=== PATIENT | female | born 1990 | race Two or more races ===

== ENCOUNTER 2018-08-07 09:58 | Emergency (ER) | payer SELFPAY ==
[~2018-08-07] VITALS: Ht 170.2 cm; Wt 57.0 kg
[2018-08-07] MEDS ORDERED: SODIUM CHLORIDE 0.9% 1,000 ML IV ONE (11:06)
[2018-08-07] MEDS ORDERED: ONDANSETRON HCL 4MG/2ML INJ IV STA (11:06)
[2018-08-07 12:32] LABS: CLARITY URINE TURBID (CLEAR); COLOR URINE ORANGE (YELLOW); KETONES URINE 1+ (NEGATIVE); LEUKOCYTE ESTERASE URINE NEGATIVE (NEGATIVE); NITRITE URINE NEGATIVE (NEGATIVE); OCCULT BLOOD URINE NEGATIVE (NEGATIVE); PROTEIN URINE TRACE (NEGATIVE); SPECIFIC GRAVITY URINE 1.029 (1.005-1.030); UROBILINOGEN URINE 0.2 E.U./dL (0.2-1.0)
[2018-08-07] MEDS ORDERED: CEFTRIAXONE SODIUM 250 MG/VIAL IM NR (12:45)
[2018-08-07] MEDS ORDERED: AZITHROMYCIN 500 MG TABLET PO NR (12:45)
[2018-08-07] MEDS ORDERED: METRONIDAZOLE 500MG TABLET PO NR (12:45)
[2018-08-07] MEDS ORDERED: LIDOCAINE HCL/PF 1% 10 MG/ML 5ML VIAL IJ NR (13:00)
[2018-08-07 14:33] VITALS: BP 102/62
[2018-08-11 04:10] LABS: CHLAMYDIA TRACHOMATIS NAA Negative (Negative); NEISSERIA GONORRHOEAE NAA Negative (Negative)
== END 2018-08-07 14:41 | disposition home or self-care (01) ==
LOC: EDBD 09:58 → ER 09:58
DX: N89.8 Other specified noninflammatory disorders of vagina (principal); R11.2 Nausea with vomiting, unspecified; R19.7 Diarrhea, unspecified; R68.83 Chills (without fever); F17.200 Nicotine dependence, unspecified, uncomplicated; Z88.1 Allergy status to other antibiotic agents
CPT/HCPCS: 81003; 81025; 87210; 87491; 87591; 96361; 96372; 96374; 99283; J0696; J2405; J3490; J7030; Z7610